=== PATIENT | female | born 1965 | race Caucasian/White ===

== ENCOUNTER → 2018-09-06 13:01 | Outpatient (CLI) | payer OTHER, SELFPAY ==
--- NOTE | 2018-09-06 13:06 | US_ITS ---
US transvaginal Ordering Physician: Marcos Catherine MD Patient Age: 52 years: Female HISTORY: ITS.REASON: Pelvic Pain Pelvic pain. Cramping. Spotting. Ablation 8 years ago TECHNIQUE: Transvaginal pelvic ultrasound MW COMPARISON :None FINDINGS UTERUS. Normal size. 6.75 cm in length. X3 0.1 cm AP testicle 0.5 cm wide. . No fibroids evident. No uterine mass evident. Endometrial stripe measures up to 5 mm AP & most evident fundus The very minimal/subtle inhomogeneous signal along endometrium may reflect history of ablation. Nonspecific OVARIES appear normal upper normal size bilaterally. Overall Within normal limits with no cyst evident.: Left ovary. 1.8 cm x 1.75 cm x 3.4 cm Right ovary 3.3 cm x 1.55 cm x 1.7 cm. No fluid in cul-de-sac. ------IMPRESSION: 1. Ovaries appear WNL bilaterally with adenosis. No fluid in cul-de-sac. 2. Uterus appears normal in size Normal thickness endometrial stripe. Endometrial stripe is very slightly inhomogeneous signal. Nonspecific but might reflect history of ablation
== END ==
PROVIDERS: PCP Nurse Practitioner Family; Visit Provider Obstetrics & Gynecology
DX: R10.2 Pelvic and perineal pain (principal)
CPT/HCPCS: 76830